=== PATIENT | male | born 1985 | race Caucasian/White ===

== ENCOUNTER 2017-02-12 12:29 | Day surgery (SDC) | payer MEDICAID ==
[2017-02-12] MEDS ORDERED: LIDOCAINE 1% 2 ML INJ ONE (13:39)
[2017-02-12] MEDS ORDERED: LIDOCAINE 1% 2 ML INJ ID PRN (14:13)
[2017-02-12] MEDS ORDERED: LR 1,000 ML IV SCH (14:30)
[2017-02-12] MEDS ORDERED: PROPOFOL 200 MG/20 ML VIAL ONE ×2 (14:46→14:49)
--- NOTE | 2017-02-12 15:14 | GPN ---
[f rep st] PROCEDURE NOTE PROCEDURE: Gastroscopy with biopsies. INDICATION: The patient is a 31-year-old male who is dependent on daily Prilosec to control his ref lux symptoms for at least the last 5 years. He denies any other symptomatology. Gastroscopy is lindsey ng performed to rule out Pérez disease and establish any anatomical measurements for possible anti -reflux surgery. PROCEDURE: After proper consent was obtained, patient was placed in lithotomy decubitus position an d received IV general anesthesia. Video gastroscope was introduced through the mouth, down the esophagus, into stomach, and past the p ylorus into duodenum. FINDINGS: 1. Z-line is at 33 cm and is well demarcated with no evidence of Pérez disease. 2. A 3 cm hiatal hernia is noted. 3. The antrum and fundus are totally normal. Biopsies were taken to rule out H pylori. 4. The duodenum is normal. At this point, instrument was removed. Patient tolerated procedure well and was taken to the recove ry room in stable condition. RECOMMENDATIONS: 1. If H pylori is present, I would treat it. 2. For reflux, patient can continue on chronic PPIs. If he decides to have this repaired surgicall y, given the hiatal hernia, he would probably be a candidate for only a Gilmar fundoplication. /[id number]/MODL
== END 2017-02-12 16:17 | disposition home or self-care (01) ==
LOC: FSGY 12:29
PROVIDERS: ATTEND Internal Medicine Gastroenterology
PROC: 0DB68ZX Excision of Stomach, Via Natural or Artificial Opening Endoscopic, Diagnostic (ICD-10-PCS; principal; 2017-02-12 14:30)
DX: K21.9 Gastro-esophageal reflux disease without esophagitis (principal); K44.9 Diaphragmatic hernia without obstruction or gangrene; L29.9 Pruritus, unspecified; R20.2 Paresthesia of skin; Z87.891 Personal history of nicotine dependence
CPT/HCPCS: J2704